=== PATIENT | male | born 1995 | race Caucasian/White ===

== ENCOUNTER → 2017-01-25 17:38 | Emergency (ER) | payer OTHER ==
--- NOTE | 2017-01-25 21:22 | ED ---
Laceration/Wound HPI - HPI Summary HPI Summary: 21M presents with lacerations of chin and lacerations near right eye. He was cleated at a rugby game. His tetanus is up to date. The area is currently bleeding. He denies any LOC. He denies any numbness or tingling. He denies any nausea or vomiting. He denies any change in vision. He denies any dizziness or photophobia. - History of Current Complaint Stated Complaint: EYE INJURY Time Seen by Provider: 01/25/17 19:38 Pain Intensity: 1 PMH/Surg Hx/FS Hx/Imm Hx Endocrine/Hematology History: Denies: Hx Anticoagulant Therapy Cardiovascular History: Denies: Hx Hypertension - Immunization History Immunizations Up to Date: Yes Infectious Disease History: No Infectious Disease History: Denies: Traveled Outside the [place] in Last 30 Days - Family History Known Family History: Negative: Cardiac Disease - Social History Alcohol Use: None Substance Use Type: Reports: None Smoking Status (MU): Never Smoked Tobacco Review of Systems Negative: Fever Negative: Chest Pain Negative: Shortness Of Breath Positive: Other - lacerations to chin and face All Other Systems Reviewed And Are Negative: Yes Physical Exam Triage Information Reviewed: Yes Vital Signs On Initial Exam: Initial Vitals Temp Pulse Resp BP Pulse Ox 98.3 F 90 20 138/77 98 01/25/17 17:47 01/25/17 17:47 01/25/17 17:47 01/25/17 17:47 01/25/17 17:47 Vital Signs Reviewed: Yes Appearance: Positive: Well-Appearing Skin: Positive: Warm, Dry, Other - two lacerations chin 1cm superficial and other 2cm by 1/2cm, two lacerations near right eye 2cm by 1/2cm and 1/2cm superificial Head/Face: Positive: Normal Head/Face Inspection, Other - no step off, raccoon eyes, bobo sign Eyes: Positive: Normal, EOMI, ESMER, Conjunctiva Clear ENT: Positive: Normal ENT inspection, Pharynx normal, TMs normal Respiratory/Lung Sounds: Positive: Clear to Auscultation, Breath Sounds Present Cardiovascular: Positive: Normal, RRR Musculoskeletal: Positive: Normal Neurological: Positive: Sensory/Motor Intact, Alert, Oriented to Person Place, Time, CN Intact II-III Psychiatric: Positive: Normal - Elissa Coma Scale Coma Scale Total: 15 Procedures - Laceration/Wound Repair 1 Location: Other - chin laceration Description: Irregular Anesthesia: Local, 1.0%, Epi Length, Depth and Shape: 2cm by 1/2cm and 1cm superificial Irrigated w/ Saline (ccs): 200 Closure: Skin Adhesive, Single Layer Suture Type: Prolene - 6-0 Number of Sutures: 2 2 Location: Other - right eye Description: Irregular Anesthesia: Local, 1.0%, Epi Length, Depth and Shape: 2cm by 1/2cm and 1/2cm superficial Closure: Skin Adhesive, Single Layer Suture Type: Prolene - 6-0 Number of Sutures: 2 Layer Closure?: No Diagnostics - Vital Signs Vital Signs Temp Pulse Resp BP Pulse Ox 01/25/17 17:47 98.3 F 90 20 138/77 98 - Laboratory Lab Statement: Any lab studies that have been ordered have been reviewed, and results considered in the medical decision making process. Laceration Repair Course/Dx - Course Course Of Treatment: 21M presents with lacerations of chin and lacerations near right eye. He was cleated at a [employer] game. His tetanus is up to date. The area is currently bleeding. He denies any LOC. He denies any numbness or tingling. He denies any nausea or vomiting. He denies any change in vision. He denies any dizziness or photophobia. has two laceration near eye one glue other laceration placed 2 sutures. 2 chin laceration one placed with glue and other 2 sutures placed. normal neuro exam. patient understand and agrees with plan. - Differential Dx Differental Diagnoses: Abrasion, Avulsion, Laceration - Clinical Impression Provider Diagnoses: Face lacerations Discharge - Discharge Plan Condition: Good Disposition: HOME Patient Education Materials: Care For Your Stitches (ED), Skin Adhesive Care ( ED) Referrals: [facility] [Primary Care Provider] - Additional Instructions: Keep area clean and dry for 48 hours Take Tylenol or ibuprofen for pain every 6 hours Return to ED or primary for suture removal in 5 days Return to ED if develop signs of infection such as fever, spreading redness, or pus formation
[2017-01-25 21:29] VITALS: BP 119/78
== END | disposition home or self-care (01) ==
LOC: ED 17:38 → MERGE 17:38 → ED 21:29
DX: S01.81XA Laceration without foreign body of other part of head, initial encounter (principal); W18.09XA Striking against other object with subsequent fall, initial encounter; Y93.63 Activity, rugby; Y92.9 Unspecified place or not applicable
CPT/HCPCS: 12011; 99281